=== PATIENT | female | born 1985 | race Caucasian/White ===

== ENCOUNTER 2017-01-17 13:17 | Emergency (ER) | payer BC | END 2017-01-17 15:35 | disposition home or self-care (01) | LOC: D.ER 13:17 | DX: S83.92XA Sprain of unspecified site of left knee, initial encounter (principal); W19.XXXA Unspecified fall, initial encounter; Y93.89 Activity, other specified; Y92.129 Unspecified place in nursing home as the place of occurrence of the external cause ==

== ENCOUNTER → 2018-01-29 11:58 | Outpatient (CLI) | payer BC | END | disposition home or self-care (01) | LOC: D.RAD 11:58 | DX: M25.511 Pain in right shoulder (principal) ==